=== PATIENT | male | born 1965 | race Caucasian/White ===

== ENCOUNTER 2022-08-29 08:07 | Emergency (ER) | payer SELFPAY ==
[2022-08-29] MEDS ORDERED: Lidocaine 1% w/Epinephrine 1:100K 20 ML VIAL ONE (09:18)
[2022-08-29] MEDS ORDERED: Lidocaine 1% PF 5 ML VIAL ONE (09:38)
[2022-08-29] MEDS ORDERED: Bacitracin 1 PK ONE (09:56)
== END 2022-08-29 10:19 | disposition home or self-care (01) ==
LOC: ERS 08:07
DX: L02.611 Cutaneous abscess of right foot (principal); L03.031 Cellulitis of right toe
CPT/HCPCS: 10060

== ENCOUNTER 2022-08-31 06:45 | Emergency (ER) | payer SELFPAY | END 2022-08-31 09:42 | disposition home or self-care (01) | LOC: ERS 06:45 | DX: L02.611 Cutaneous abscess of right foot (principal); M1A.9XX1 Chronic gout, unspecified, with tophus (tophi) | CPT/HCPCS: 99282 ==